=== PATIENT | female | born 1970 | race Caucasian/White ===

== ENCOUNTER 2023-09-30 11:37 | Emergency (ER) | payer MEDICAID ==
[~2023-09-30] VITALS: Ht 165.1 cm; Wt 60.9 kg
[~2023-09-30 11:37] MED LIST: ONDA4TAB12 PO
[2023-09-30 11:44] VITALS: TEMP 98.3
[2023-09-30 15:06] VITALS: BP 106/57; PULSE 62; RESP 16; O2SAT 99
== END 2023-09-30 15:08 | disposition home or self-care (01) ==
LOC: ER 11:37
DX: R51.9 Headache, unspecified (principal); Z79.899 Other long term (current) drug therapy
CPT/HCPCS: 70450; 99284